=== PATIENT | female | born 2005 | race Two or more races ===

== ENCOUNTER 2024-12-30 20:25 | Emergency (ER) | payer MEDICAID, SELFPAY ==
[2024-12-30 21:04] VITALS: BP 129/80; PULSE 80; RESP 18; TEMP 36.8; O2SAT 99; BMI 31.2
--- NOTE | 2024-12-30 21:49 | EDNOTE_ITS ---
ED Female Urogenital RME/HPI General Chief complaint: Urogenital-Female Stated complaint: MIGHT HAVE LOST A TAMPON Time Seen by Provider: 12/30/24 21:37 Arrival date/time: 12/30/24 20:25 19F with no significant PMH presents to ED with possible tampon in cervix for 2 days. Patient denies pain and discharge. Patient is sexually active. Limitations: no limitations Related Data Home Medications ?Medication ?Instructions ?Recorded ?Confirmed No Known Home Medications 10/16/1809/20 Allergies Allergy/AdvReac Type Severity Reaction Status Date / Time No Known Allergies Allergy Verified 12/30/24 20:26 Review of Systems Review of Systems Systems Reviewed: All systems reviewed, normal except as documented Past Medical History Past Medical History CARDIAC: Negative Congestive Heart Failure RESPIRATORY: Negative Chronic Obstructive Pulmonary Disease (COPD) GENITOURINARY: Negative Renal Disease ENDOCRINE: Negative Diabetes Mellitus Type 1 or Diabetes Mellitus Type 2 Social History SMOKING STATUS: Never smoker ED Exam General Limitations: Present no limitations General appearance: Present alert and in no apparent distress Head Head exam: Present atraumatic Neck Neck exam: Present normal inspection, full ROM and trachea midline Chest Chest inspection: Present normal inspection and symmetric chest wall rise Speculum exam: Present other (papillomatous changes ) Neurological Exam Neurological exam: Present alert and oriented X3 Psychiatric Psychiatric exam: Present normal affect and normal mood Skin Skin exam: Present warm, dry, intact and normal color Course Quality Measures none Orders Category Date Time Status Pelvic Exam X1 Care 12/30/24 21:39 Active Vital Signs Vital signs: Vital Signs Temperature 98.3 F 12/30/24 21:04 Pulse Rate 80 12/30/24 21:04 Respiratory Rate 18 12/30/24 21:04 Blood Pressure 129/80 12/30/24 21:04 Pulse Oximetry (%) 99 12/30/24 21:04 Oxygen Delivery Method Room Air 12/30/24 21:04 O2 at 99% on RA and WNLs Urogenital - Female MDM Narrative MDM Narrative:: 19F with no significant PMH presents to ED with possible tampon in cervix for 2 days. Patient denies pain and discharge. Patient is sexually active. Physical/speculum exam with breaker table worker ELFEGO Boucher reveals no tampon or FB. However, there is significant thickening and cervical papillomatous changes of the cervix. Patient is afebrile, calm, and alert. Counseled to see PCP/OBGYN soon for pap smear and additional evaluation. Patient data External records reviewed:: None Clinical information provided by:: patient Social determinants that could affect healthcare access:: none Patient has the following chronic illnesses:: none How is presenting disease/condition affected by chronic disease/condition?: no chronic disease Evaluation data The following diagnostics were reviewed and interpreted by me:: other (specify) (none) Lab and/or radiology exams considered but not ordered:: not ordered Interpretation Summary: n/a Medications / Prescriptions Medications or Prescriptions considered but not ordered:: not ordered Medication administrations:: n/a Consultations Consultation(s) initiated? (list below): No Diagnosis Urogenital Female Differential Diagnosis: urinary tract infection, bacterial vaginosis, trichomoniasis, cervicitis, ovarian cyst, vaginitis, ruptured ovarian cyst, cyst of Bartholin's gland, cystitis, dysmenorrhea and other (abnormal pelvic exam, FB vaginal ) Most likely diagnosis given after review of the tests above:: abnormal pelvic exam Admission Indicated Admission indicated?: not indicated Admission Request Was there a request for admission?: No Disposition Plan Disposition Plan: Discharge Discharge Attestation Discharge Attestation: The patient and all family members were given an opportunity to ask questions and understood the discharge instructions. Discharge instructions specifically effects, indications for sooner follow up or return to the emergency department, and the expected course of current diagnosis. Patient condition: Stable Discharge Plan Plan Patient Disposition: HOME (Self Care) Discharge Disposition comment: Stable Prescriptions/Referrals Prescriptions/Med Rec: No Action No Known Home Medications Problem List Clinical Impression: Abnormal pelvic exam Patient/Caregiver Discharge Instructions Education Materials: Pap Test, Cervix Changes Additional Instructions: Please follow-up with PCP/OBYGN within 24-48 hours and return immediately if symptoms worsen. [facility] Need to see OBGYN/PCP and get a pap smear and additional evaluation soon. Print Language: Tunisian Stand Alone Forms: Patient Portal Info Letter RAFAEL/JUANY Supervising Physician RAFAEL/JUANY Supervising Physician: Dr. Scanlon
== END 2024-12-30 21:49 | disposition home or self-care (01) ==
LOC: SERX 21:53
PROVIDERS: Emergency Provider Emergency Medicine
DX: N88.8 Other specified noninflammatory disorders of cervix uteri (principal)
CPT/HCPCS: 99281